=== PATIENT | female | born 1975 | race Caucasian/White ===

== ENCOUNTER 2018-05-03 09:35 | Day surgery (SDC) | payer MEDICARE ==
[~2018-05-03] VITALS: Ht 152.4 cm; Wt 75.0 kg
[~2018-05-03 09:35] MED LIST: BACLOFEN10 MG PO; CRANBERRY 400 M1 TA1 PO; LAMICTAL25 MG PO; MIRALAX17 GM PO; MYRBETRIQ50 MG PO; PHENOBARBITAL32.4 MG PO; VESICARE5 MG PO; ZIPSOR25 MG PO
[2018-05-03 10:28] VITALS: Ht 152.4 cm; Wt 75.0 kg
== END 2018-05-03 12:20 | disposition home or self-care (01) ==
LOC: D.OPS 09:35 → D.PAN 11:30 → D.OPS 12:20
DX: L60.0 Ingrowing nail (principal); M79.671 Pain in right foot; M79.672 Pain in left foot; Z01.812 Encounter for preprocedural laboratory examination